=== PATIENT | male | born 1945 | race Caucasian/White ===

== ENCOUNTER 2019-11-28 07:11 | Day surgery (SDC) | payer MEDICARE ==
[~2019-11-28 07:11] MED LIST: Acetaminophen TAB* 325 MG PO PRN; Buffered Lidocaine 1% SYRIN* 1 ML/SYRINGE INTRADERM ONE
[2019-11-28 10:02] VITALS: BP 152/78
[2019-11-28] MEDS ORDERED: Ketorolac 0.5% OPHTH (NF) 0.5 % 5 ML BTL ONE (10:27)
[2019-11-28] MEDS ORDERED: Proparacaine 0.5% OPHTH.SOL* 15 ML BTL ONE (10:27)
[2019-11-28] MEDS ORDERED: Povidone Iodine 5% OPTH* 30 ML BTL ONE (10:27)
[2019-11-28] MEDS ORDERED: Phenylephrine OPHTH SOL 2.5%* 2 ML ONE (10:27)
[2019-11-28] MEDS ORDERED: Cyclopentolate 1% OPTH.SOL* 2 ML BTL ONE (10:27)
[2019-11-28] MEDS ORDERED: acetaZOLAMIDE TAB* 250 MG ONE (10:27)
[2019-11-28] MEDS ORDERED: Neomycin/Polymy/Dex OPTH.SUSP* MAXITROL 0.1% 5 ML ONE (10:27)
[2019-11-28] MEDS ORDERED: Lidocaine 2% w/ EPI 1:200,000* 20 ML SDV VIAL ONE (10:27)
[2019-11-28] MEDS ORDERED: Lidocaine 1% MPF ** 5 ML VIAL ONE (10:27)
--- NOTE | 2019-11-28 16:51 | OP ---
DATE OF OPERATION: 11/28/2019 - [facility] DATE OF : 1945. SURGEON: Akhil Dunbar M.D. PREOPERATIVE DIAGNOSIS: Cataract right eye. POSTOPERATIVE DIAGNOSIS: Cataract right eye. OPERATIVE PROCEDURE: Extracapsular cataract extraction with intraocular lens implant right eye. DESCRIPTION OF PROCEDURE: The patient was brought to the operating room after being given 1/2% Alcaine with epinephrine drops in the preoperative area. The eye was prepped and draped in the usual sterile fashion. Sterile drape and eyelid speculum were placed. Again, topical 1/2% Alcaine with epinephrine was given. A paracentesis incision was made at the 9 o'clock position with the No.75 blade. Clear cornea incision 2.2 x 2.2-mm was created at the 12 o'clock position starting at the anterior limbus using the 2.2-mm keratome. The anterior chamber was irrigated with 0.4 mL of 1% non-preservative intracameral lidocaine and filled with DisCoVisc. A capsulorrhexis was completed using the cystotome and the Utrata forceps. Hydrodissection was performed with balanced salt solution. The lens nucleus was removed with the Phacoemulsification handpiece without incident. Cortex was removed with the irrigation-aspiration handpiece. The capsular bag was re-inflated using DisCoVisc and an SN6AT3 20.5 implant was inserted with the shooter, oriented to the 172 degree meridian. All measurements were confirmed with ORA. Horizontal reference cantrell were made with the patient in a seated position in the preoperative area. The irrigation- aspiration handpiece was used to remove all residual DisCoVisc. The eye was refilled with balanced salt solution and the wound checked and found to be watertight. Topical Maxitrol drops were given. [id number]/[facility] #: [id number] [facility] CENTERMarija
== END 2019-11-28 10:10 | disposition home or self-care (01) ==
LOC: OREAST 07:11
PROVIDERS: ATTEND Specialist
DX: H25.811 Combined forms of age-related cataract, right eye (principal); I10 Essential (primary) hypertension; M10.9 Gout, unspecified; H52.223 Regular astigmatism, bilateral; I35.0 Nonrheumatic aortic (valve) stenosis; H35.371 Puckering of macula, right eye; N40.0 Benign prostatic hyperplasia without lower urinary tract symptoms; Z87.891 Personal history of nicotine dependence; Z88.8 Allergy status to other drugs, medicaments and biological substances
CPT/HCPCS: A9270-GY; V2787